=== PATIENT | female | born 1970 | race Caucasian/White ===

== ENCOUNTER → 2021-04-11 | Outpatient (CLI) | payer OTHER ==
--- NOTE | 2021-04-11 13:07 | XR ---
EXAMINATION TYPE: XR chest 2V DATE OF EXAM: 04/11/2021 COMPARISON: NONE TECHNIQUE: PA and lateral views submitted. HISTORY: Presurgical FINDINGS: The lungs are clear and there is no pneumothorax, pleural effusion, or focal pneumonia. Heart size is normal. No overt failure. Hypertrophic and degenerative changes spine. Mild hyperinflation correla te for COPD or asthma. IMPRESSION: 1. No acute process.
[2021-04-11 13:16] LABS: Appearance,Urine Clear (Clear); Bilirubin,Urine Negative (Negative); Blood,Urine Negative (Negative); Color,Urine Yellow; Glucose,Urine (UA) Negative (Negative); Ketones,Urine Negative (Negative); Leukocyte Esterase,Urine Negative (Negative); Nitrite,Urine Negative (Negative); PH, Urine 6.5 (5.0-8.0); Protein,Urine Negative (Negative); Specific Gravity,Urine 1.023 (1.001-1.035)
[2021-04-11 13:25] LABS: INR 0.9 (<1.2); Partial Thromboplastin Time 22.4 sec (22.0-30.0); Prothrombin Time 10.1 sec (9.0-12.0)
[2021-04-11 19:17] LABS: Basophils # (A) 0.02 X 10*3/uL (0.00-0.10); Basophils % (A) 0.3 %; Eosinophils # (A) 0.08 X 10*3/uL (0.04-0.35); Eosinophils % (A) 1.1 %; HGB 13.5 g/dL (12.0-15.0); Lymphocytes # (A) 2.17 X 10*3/uL (0.90-5.00); MCH 27.5 pg (27.0-32.0); MCHC 32.1 g/dL (32.0-37.0); MCV 85.5 fL (80.0-97.0); Mean Platelet Volume 9.7 fL (9.5-12.2); Monocytes # (A) 0.52 X 10*3/uL (0.20-1.00); Monocytes % (A) 6.9 %; Neutrophils # (A) 4.68 X 10*3/uL (1.80-7.70); Neutrophils % (A) 62.4 %; Platelet Count 345 X 10*3/uL (140-440); RBC 4.91 X 10*6/uL (4.10-5.20); RDW 12.6 % (11.5-14.5); WBC 7.49 X 10*3/uL (4.50-10.00)
[2021-04-11 19:25] LABS: Anion Gap 11.3 mmol/L (10.00-18.00); Blood Urea Nitrogen 12.8 mg/dL (9.0-27.0); Calcium 9.2 mg/dL (8.7-10.3); Carbon Dioxide 25.7 mmol/L (20.0-27.5); Non-African American GFR(CKD) 87.2 (60.0-200.0)
== END | disposition home or self-care (01) ==
LOC: LABPAT 12:15
PROVIDERS: ATTEND Orthopaedic Surgery Orthopaedic Surgery of the Spine
DX: Z01.812 Encounter for preprocedural laboratory examination (principal)
CPT/HCPCS: 36415; 71046; 80048; 81003; 85025; 85610; 85730; 93005